=== PATIENT | female | born 1980 | race Caucasian/White ===

== ENCOUNTER 2019-03-06 21:37 | Emergency (ER) | payer OTHER ==
[~2019-03-06] VITALS: Ht 157.5 cm; Wt 81.6 kg
== END 2019-03-06 23:44 | disposition home or self-care (01) ==
LOC: ER 21:37
DX: B34.9 Viral infection, unspecified (principal)

== ENCOUNTER → 2020-01-12 | Emergency (ER) | payer OTHER ==
[~2020-01-12] VITALS: Ht 157.5 cm; Wt 72.6 kg
[~2020-01-12] MED LIST: HORIZANT300 MG PO; MUCINEX DM ER1 EAC1 PO; MUPIROCIN15 GM TOP; TESSALON PERLE100 M1 PO; VALACYCLOVIR1000 MG PO
== END | disposition home or self-care (01) ==
LOC: ER
DX: B02.9 Zoster without complications (principal)

== ENCOUNTER 2022-03-19 13:01 | Emergency (ER) | payer OTHER ==
[~2022-03-19] VITALS: Ht 157.5 cm; Wt 81.6 kg
[2022-03-19] MEDS ORDERED: ALLEGRA ALLERG180 MG (13:32)
== END 2022-03-19 20:57 | disposition left against medical advice (07) ==
LOC: ER 13:01
DX: R42 Dizziness and giddiness (principal); Z20.822 Contact with and (suspected) exposure to COVID-19